=== PATIENT | male | born 1990 | race African-American/Black ===

== ENCOUNTER 2019-06-02 16:34 | Emergency (ER) | payer OTHER ==
--- NOTE | 2019-06-02 16:38 | PDOC ---
Rapid Medical Evaluation Time Seen by Provider: 06/02/19 16:37 Medical Evaluation: 06/02/19 16:37 HPI:L middle finger swelling x 3 days no fevers PE: L middle finger swelling ORDERS: Nothing Discharge Disposition - Diagnosis Paronychia - Referrals - Patient Instructions - Post Discharge Activity
[2019-06-02 16:41] VITALS: BP 113/66; PULSE 80; TEMP 98.5; BMI 29.5
--- NOTE | 2019-06-02 17:47 | PDOC ---
History of Present Illness - General Chief Complaint: Pain Stated Complaint: FINGER INJURY Time Seen by Provider: 06/02/19 16:37 History Source: Patient Exam Limitations: Clinical Condition - History of Present Illness Initial Comments: 06/02/19 17:43 Patient with no significant past medical history present with complaint of three -day history of swelling around nailbed of left middle finger with pain to whole middle finger status post injuring the finger week ago while changing a car tire . and reported increased pain around fingernail of left middle finger. Denies numbness or tingling sensation. Denies any other symptoms Occurred: reports: last week Past History - Past Medical History Allergies/Adverse Reactions: Allergies Allergy/AdvReac Type Severity Reaction Status Date / Time No Known Allergies Allergy Verified 06/02/19 16:38 Home Medications: Ambulatory Orders Amox-Tr/K Cl [Augmentin - 875Mg Tablet] 1 tab PO BID #14 tablet 06/02/19 Ibuprofen 800 mg PO Q8H PRN #20 tablet 06/02/19 - Suicide/Smoking/Psychosocial Hx Smoking History: Former smoker Have you smoked in the past 12 months: Yes If you are a former smoker, when did you quit?: 5 Information on smoking cessation initiated: Yes Hx Alcohol Use: No Drug/Substance Use Hx: No Review of Systems - Review of Systems Able to Perform ROS?: Yes Is the patient limited [place] proficient: No Constitutional: No: Malaise, Weakness HEENTM: No: Symptoms Reported Respiratory: No: Symptoms reported Cardiac (ROS): No: Symptoms Reported Musculoskeletal: Yes: Symptoms Reported, Joint Swelling (left middle finger), Muscle Pain (left middle finger) Integumentary: Yes: Symptoms Reported, See HPI, Erythema (left middle finger around fingernail) Neurological: No: Symptoms reported, Numbness, Paresthesia, Tingling All Other Systems: Reviewed and Negative *Physical Exam - Vital Signs Last Vital Signs Temp Pulse Resp BP Pulse Ox 98.5 F 80 18 113/66 99 06/02/19 16:39 06/02/19 16:39 06/02/19 16:39 06/02/19 16:39 06/02/19 16:39 - Physical Exam Comments: 06/02/19 17:46 GENERAL: Well developed, well nourished. Awake and alert in mild acute distress. PULMONARY: No evidence of respiratory distress. MUSCULOSKELETAL : moderate tenderness to middle phalange and distal phalange with moderate swelling around nailbed of left middle finger SKIN: Warm and dry. Normal capillary refill. Moderate swelling around nailbed of left middle finger. NEUROLOGICAL: Alert, awake, appropriate. No motor deficits in the lower extremities. Gait is normal without ataxia. PSYCHIATRIC: Cooperative. Good eye contact. Appropriate mood and affect. General Appearance: Yes: Nourished, Appropriately Dressed, Mild Distress ED Treatment Course - RADIOLOGY Radiology Studies Ordered: Category Date Time Status FINGER(S) LEFT [RAD] Stat Radiology 06/02/19 17:40 Ordered Medical Decision Making - Medical Decision Making 06/02/19 17:44 Patient with no significant past medical history present with complaint of three -day history of swelling around nailbed of left middle finger with pain to whole middle finger status post injuring the finger week ago while changing a car tire . and reported increased pain around fingernail of left middle finger. Denies numbness or tingling sensation. Denies any other symptoms Exam significant for moderate tenderness to middle phalange and distal phalange with moderate swelling around nailbed of left middle finger. Symptoms likely paronychia from finger contusion versus less likely fractured finger. X-ray of left middle finger ordered to rule out acute pathology. Treat based on x-ray results 06/02/19 18:37 x-rays shows no acute fracture or dislocation. swelling of nailbed drained with 18 guauge needle after given a digital block with 4cc 1% lidocaine. moderate amount of pururlent discharge from wound drained. wound culture obtained. Toradol 60mg IM ordered for pain. Patient stable for outpatient management of paronychia with Augmentin x 7 days and ibuprofen with advice to do warm compresses to finger with PCP follow-up *DC/Admit/Observation/Transfer Diagnosis at time of Disposition: Paronychia - Discharge Dispostion Disposition: HOME Condition at time of disposition: Stable Decision to Admit order: No - Prescriptions Prescriptions: Amox-Tr/K Cl [Augmentin - 875Mg Tablet] 1 tab PO BID #14 tablet Ibuprofen 800 mg PO Q8H PRN #20 tablet PRN Reason: finger pain - Referrals - Patient Instructions Printed Discharge Instructions: DI for Paronychia, DI for Wound Infection Additional Instructions: Take medications as prescribed. Apply hot compress to finger 2-3 times a day for 5-10days as needed for swelling. Follow-up with your PCP in 3-5 days for reassessment - Post Discharge Activity
[2019-06-02] MEDS ORDERED: KETOROLAC TROMETHAMINE 60 MG/2 ML VIAL IM ONE (18:21)
[2019-06-02] MEDS ORDERED: KETOROLAC TROMETHAMINE 60 MG/2 ML VIAL ONE (18:24)
== END 2019-06-02 19:00 | disposition home or self-care (01) ==
LOC: JERFT 16:34 → JER 16:34 → JERFT 19:00
PROC: 0J9K3ZZ Drainage of Left Hand Subcutaneous Tissue and Fascia, Percutaneous Approach (ICD-10-PCS; principal; 2019-06-02)
PROC: 3E0233Z Introduction of Anti-inflammatory into Muscle, Percutaneous Approach (ICD-10-PCS; 2019-06-02)
DX: L03.012 Cellulitis of left finger (principal); Z87.891 Personal history of nicotine dependence
CPT/HCPCS: 73140-TC-LT-FY; 99281-25

== ENCOUNTER 2019-06-10 17:30 | Emergency (ER) | payer OTHER ==
--- NOTE | 2019-06-10 17:45 | PDOC ---
Rapid Medical Evaluation Medical Evaluation: Allergies Allergy/AdvReac Type Severity Reaction Status Date / Time No Known Allergies Allergy Verified 06/02/19 16:38 06/10/19 17:40 I have performed a brief in-person evaluation of this patient. The patient presents with a chief complaint of: s/p I&D of L middle finger paronychia 06/02, on amox, here for wound check. States sxs are better Pertinent physical exam findings:well healing wound on exam I have ordered the following:nothing The patient will proceed to the ED for further evaluation. 06/10/19 17:46 Discharge Disposition - Diagnosis Visit for wound check - Referrals - Patient Instructions - Post Discharge Activity
[2019-06-10 17:48] VITALS: BP 111/70; PULSE 70; TEMP 98.8; BMI 30.8
--- NOTE | 2019-06-10 18:10 | PDOC ---
History of Present Illness - General Chief Complaint: Revisit,Wound Recheck Stated Complaint: FINGER INJURY Time Seen by Provider: 06/10/19 17:43 - History of Present Illness Initial Comments: 06/10/19 18:07 28-year-old male presents for evaluation of left middle finger wound check after an incision and drainage of paronychia about 5 days ago. He is on ABX and feelinf better. 06/10/19 18:08 Past History - Past Medical History Allergies/Adverse Reactions: Allergies Allergy/AdvReac Type Severity Reaction Status Date / Time No Known Allergies Allergy Verified 06/02/19 16:38 Home Medications: Ambulatory Orders NK [No Known Home Medication] 06/10/19 - Suicide/Smoking/Psychosocial Hx Smoking History: Never smoked Have you smoked in the past 12 months: No If you are a former smoker, when did you quit?: 5 Information on smoking cessation initiated: No Hx Alcohol Use: No Drug/Substance Use Hx: No Review of Systems - Review of Systems Integumentary: Yes: See HPI *Physical Exam - Vital Signs Last Vital Signs Temp Pulse Resp BP Pulse Ox 98.8 F 70 18 111/70 100 06/10/19 17:46 06/10/19 17:46 06/10/19 17:46 06/10/19 17:46 06/10/19 17:46 - Physical Exam Comments: 06/10/19 18:08 Left middle finger skin color and temperature are normal. There is mild swelling about the proximal radial and ulnar aspect of the nail fold no fluctuance warmth induration or erythema. There is minimal tenderness without gross sensory motor deficits. Medical Decision Making - Medical Decision Making 06/10/19 18:09 Patient to continue the antibiotics follow-up with hand surgery and return to work next week on Saturday. Instructions given to return to the emergency room should there be worsening of symptoms prior to follow-up with hand surgery. *DC/Admit/Observation/Transfer Diagnosis at time of Disposition: Visit for wound check, Paronychia - Discharge Dispostion Disposition: HOME Condition at time of disposition: Stable Decision to Admit order: No - Referrals Referrals: Heriberto Bourne MD [Staff Physician] - - Patient Instructions Additional Instructions: Return to the emergency room should there be any worsening of symptoms. Follow- up with hand surgery in 1-2 days without fail for further evaluation and treatment options. Continue the antibiotics as directed. - Post Discharge Activity Forms/Work/School Notes: Back to Work
== END 2019-06-10 18:15 | disposition home or self-care (01) ==
LOC: JERFT 17:30
DX: Z48.01 Encounter for change or removal of surgical wound dressing (principal)
CPT/HCPCS: 99281-25